=== PATIENT | male | born 1975 | race Caucasian/White ===

== ENCOUNTER 2021-06-22 10:50 | Emergency (ER) | payer MEDICAID, OTHER ==
[~2021-06-22] VITALS: Ht 180.3 cm; Wt 117.9 kg
[2021-06-22 10:56] VITALS: BP 149/83
[2021-06-23] MEDS ORDERED: TEMA30CA PO (17:49)
[2021-06-23] MEDS ORDERED: NALO0.4I4 IJ (17:49)
[2021-06-23] MEDS ORDERED: GABA100C9 PO (17:49)
[2021-06-23] MEDS ORDERED: ALPR0.5T7 PO (17:49)
[2021-06-23] MEDS ORDERED: BENA10TA15 PO (17:49)
[2021-06-23] MEDS ORDERED: METO25TA5 PO (17:49)
[2021-06-23] MEDS ORDERED: PERCOT PO (17:49)
[2021-06-23] MEDS ORDERED: ZIPR80CA37 PO (17:49)
[2021-06-23] MEDS ORDERED: FURO20TA3 PO (17:49)
[2021-06-23] MEDS ORDERED: QUET50TA PO (17:49)
[2021-06-23] MEDS ORDERED: FLUO-126 PO (17:49)
== END 2021-06-22 12:45 | disposition left against medical advice (07) ==
LOC: ER 10:50
DX: R07.9 Chest pain, unspecified (principal); Z53.21 Procedure and treatment not carried out due to patient leaving prior to being seen by health care provider

== ENCOUNTER 2021-06-22 17:43 | Inpatient (IN) | payer MEDICAID ==
[~2021-06-22] VITALS: Ht 185.4 cm; Wt 114.6 kg
[2021-06-22] MEDS ORDERED: ASPirin 325 MG TAB PO ONE (18:30)
[2021-06-22] MEDS ORDERED: NITROGLYCERIN 0.4 MG SL TAB SL ONE (18:30)
[2021-06-22 19:21] LABS: Basophils # (auto) 0 10 ^3/uL (0-0.2); Basophils % (auto) 0.4 % (0.0-2.0); Eosinophils # (auto) 0.2 10 ^3/uL (0-0.8); Eosinophils % (auto) 1.4 % (0.0-7.0); Hematocrit 43.9 % (41.0-53.0); Hemoglobin 14.9 g/dL (13.5-17.5); Lymphocytes # (auto) 2.1 10 ^3/uL (0.4-5.4); Lymphocytes % (auto) 18.1 % (10.0-50.0); Mean Corpuscular Hemoglobin 29.5 pg (28.0-32.0); Mean Corpuscular Volume 86.8 fL (80.0-100.0); Monocytes # (auto) 0.9 10 ^3/uL (0-1.3); Monocytes % (auto) 7.8 % (0.0-12.0); Neutrophils # (auto) 8.3 10 ^3/uL (1.6-8.6); Neutrophils % (auto) 72.3 % (37.0-80.0); Nucleated Red Blood Cells % 0.2 %; Red Blood Cells 5.06 10^6/uL (4.5-5.90); Red Cell Distribution Width 13.8 % (11.8-14.3); White Blood Cell 11.4 10^3/uL (4.4-10.8)
[2021-06-22 19:33] LABS: Albumin 3.9 g/dL (3.4-5.0); BUN/Creatinine Ratio 11.8; Calcium 9.3 mg/dL (8.5-10.1); Potassium 3.9 mmol/L (3.5-5.1)
[2021-06-22 19:36] LABS: Bilirubin, Total 0.4 mg/dL (0.2-1.0); Total Protein 8.1 g/dL (6.4-8.2)
[2021-06-22] MEDS ORDERED: FUROSEMIDE 40 MG/4 ML VIAL IV ONE (21:45)
[2021-06-22] MEDS ORDERED: ONDANSETRON HCL 4 MG/2 ML VIAL IV PRN (23:30)
[2021-06-22] MEDS ORDERED: NITROGLYCERIN 0.4 MG SL TAB SL PRN (23:30)
[2021-06-22] MEDS ORDERED: MORPHINE SULFATE INJECTION 2 MG/ML SYRG IV PRN ×2 (23:30)
[2021-06-23 02:28] LABS: Urine Bacteria NONE SEEN /hpf (None Seen); Urine Blood Negative /uL (Negative); Urine Hyaline Cast FEW /lpf (0 - 2); Urine Mucus FEW (None Seen); Urine Specific Gravity 1.013 (1.001-1.035); Urine WBC 1 /hpf (0 - 3)
[2021-06-23 02:36] LABS: Alcohol, Urine < 3.0 mg/dL (0-10); Amphetamine Screen, Urine NEGATIVE (NEGATIVE); Barbiturate Scree,Urine NEGATIVE (NEGATIVE); Benzodiazephine Screen, Urine NEGATIVE (NEGATIVE); Cannabinoid Screen, Urine NEGATIVE (NEGATIVE); Cocaine Screen, Urine NEGATIVE (NEGATIVE); Opiate Scree,Urine NEGATIVE (NEGATIVE); Phencyclidine Screen, Urine NEGATIVE (NEGATIVE)
[2021-06-23] MEDS ORDERED: FLUoxetine HCL 20 MG CAP PO ONE (06:00)
[2021-06-23 06:53] LABS: Basophils # (auto) 0 10 ^3/uL (0-0.2); Basophils % (auto) 0.6 % (0.0-2.0); Eosinophils # (auto) 0.3 10 ^3/uL (0-0.8); Eosinophils % (auto) 3.9 % (0.0-7.0); Hematocrit 39.2 % (41.0-53.0); Hemoglobin 13.6 g/dL (13.5-17.5); Lymphocytes # (auto) 1.7 10 ^3/uL (0.4-5.4); Lymphocytes % (auto) 20.3 % (10.0-50.0); Mean Corpuscular Hemoglobin 29.9 pg (28.0-32.0); Mean Corpuscular Hgb Conc. 34.8 g/dL (32.0-36.0); Mean Corpuscular Volume 85.9 fL (80.0-100.0); Monocytes # (auto) 1.1 10 ^3/uL (0-1.3); Monocytes % (auto) 12.5 % (0.0-12.0); Neutrophils # (auto) 5.3 10 ^3/uL (1.6-8.6); Neutrophils % (auto) 62.7 % (37.0-80.0); Red Blood Cells 4.57 10^6/uL (4.5-5.90); Red Cell Distribution Width 13.6 % (11.8-14.3); White Blood Cell 8.4 10^3/uL (4.4-10.8)
[2021-06-23 07:08] LABS: Calcium 8.6 mg/dL (8.5-10.1); Potassium 3.5 mmol/L (3.5-5.1)
[2021-06-23 07:12] LABS: BUN/Creatinine Ratio 13.7
[2021-06-23] MEDS: ENOXAPARIN SOD 40 MG/0.4 ML SYRINGE SC SCH (10:20)
[2021-06-23] MEDS: ASPirin-EC 81 mg tab PO SCH (10:20)
[2021-06-23] MEDS: METOPROLOL TARTRATE 25 MG TAB PO SCH ×2 (10:22→22:00)
[2021-06-23] MEDS ORDERED: LORazepam 0.5 MG TAB PO PRN (13:15)
[2021-06-23] MEDS ORDERED: OXYCODONE W/ ACETAMINOPHEN 5/325MG TABLET PO PRN (15:30)
[2021-06-23 16:41] VITALS: BP 91/52
[2021-06-23 17:00] VITALS: BP 91/52
[2021-06-23] MEDS ORDERED: FLUO-126 PO (17:49)
[2021-06-23] MEDS ORDERED: TEMA30CA PO (17:49)
[2021-06-23] MEDS ORDERED: ZIPR80CA37 PO (17:49)
[2021-06-23] MEDS ORDERED: NALO0.4I4 IJ (17:49)
[2021-06-23] MEDS ORDERED: ALPR0.5T7 PO (17:49)
[2021-06-23] MEDS ORDERED: PERCOT PO (17:49)
[2021-06-23] MEDS ORDERED: QUET50TA PO (17:49)
[2021-06-23] MEDS ORDERED: BENA10TA15 PO (17:49)
[2021-06-23] MEDS ORDERED: GABA100C9 PO (17:49)
[2021-06-23] MEDS ORDERED: METO25TA5 PO (17:49)
[2021-06-23] MEDS ORDERED: FURO20TA3 PO (17:49)
[2021-06-23 22:00] VITALS: BP 74/26
[2021-06-23] MEDS ORDERED: ATORVASTATIN 20 MG TAB PO SCH (22:00)
[2021-06-23] MEDS: LORazepam 0.5 MG TAB PO SCH (22:00)
[2021-06-23] MEDS ORDERED: SODIUM CHLORIDE 0.9% 1,000 ML IV ONE (22:15)
[2021-06-23 23:15] VITALS: BP 102/50
[2021-06-24 05:00] VITALS: BP 113/76
[2021-06-24 08:00] VITALS: BP 105/61
[2021-06-24] MEDS: LORazepam 0.5 MG TAB PO SCH (09:33)
[2021-06-24] MEDS: ASPirin-EC 81 mg tab PO SCH (09:34)
[2021-06-24] MEDS: METOPROLOL TARTRATE 25 MG TAB PO SCH (09:34)
[2021-06-24] MEDS: ENOXAPARIN SOD 40 MG/0.4 ML SYRINGE SC SCH (09:34)
[2021-06-24 12:00] VITALS: BP 93/68
[2021-06-24] MEDS ORDERED: QUET50TA PO (14:03)
[2021-06-24] MEDS ORDERED: ZIPR80CA37 PO (14:03)
[2021-06-24] MEDS ORDERED: FLUO-126 PO (14:03)
[2021-06-24] MEDS ORDERED: BENA10TA15 PO (14:03)
[2021-06-24] MEDS ORDERED: METO25TA5 PO (14:03)
[2021-06-24] MEDS ORDERED: FURO20TA3 PO (14:03)
[2021-06-24] MEDS ORDERED: TEMA30CA PO (14:04)
[2021-06-24 14:53] VITALS: BP 93/68
[2021-06-24 16:00] VITALS: BP 116/71
== END 2021-06-24 21:17 | disposition home health service (06) | DRG 203 ==
LOC: EDBD 17:43 → ER 17:43 → TELE 23:36 → TELE-EAST 06-23 15:51
PROVIDERS: ADMIT Hospitalist; ATTEND Hospitalist
DX: R07.9 Chest pain, unspecified (principal); I11.0 Hypertensive heart disease with heart failure; I50.9 Heart failure, unspecified; F31.9 Bipolar disorder, unspecified; F43.12 Post-traumatic stress disorder, chronic; G89.29 Other chronic pain; Z20.822 Contact with and (suspected) exposure to COVID-19; Z82.49 Family history of ischemic heart disease and other diseases of the circulatory system
CPT/HCPCS: 36415; 71045; 80048; 80053; 80061; 80307; 81001; 83735; 83880; 84484; 85025; 87081; 93005; 93306; 93970; 96374; 96375; G0378; J2405

== ENCOUNTER 2021-07-06 17:57 | Emergency (ER) | payer MEDICAID ==
[~2021-07-06] VITALS: Ht 180.3 cm; Wt 113.4 kg
[~2021-07-06 17:57] MED LIST: ALPR0.5T7 PO; BENA10TA15 PO; FLUO-126 PO; FURO20TA3 PO; GABA100C9 PO; METO25TA5 PO; NALO0.4I4 IJ; PERCOT PO; QUET50TA PO; TEMA30CA PO; ZIPR80CA37 PO
[2021-07-07] MEDS ORDERED: LORazepam 0.5 MG TAB PO ONE (08:00)
[2021-07-07 09:00] VITALS: BP 110/74
[2021-07-07 09:01] LABS: Albumin 3.6 g/dL (3.4-5.0); Calcium 8.6 mg/dL (8.5-10.1)
[2021-07-07 09:06] LABS: BUN/Creatinine Ratio 24.1; Bilirubin, Total 0.3 mg/dL (0.2-1.0); Total Protein 7.4 g/dL (6.4-8.2)
[2021-07-07 09:08] LABS: Basophils # (auto) 0 10 ^3/uL (0-0.2); Basophils % (auto) 0.6 % (0.0-2.0); Eosinophils # (auto) 0.2 10 ^3/uL (0-0.8); Eosinophils % (auto) 3.1 % (0.0-7.0); Hematocrit 37.6 % (41.0-53.0); Lymphocytes # (auto) 1.3 10 ^3/uL (0.4-5.4); Lymphocytes % (auto) 22.1 % (10.0-50.0); Mean Corpuscular Hemoglobin 30.2 pg (28.0-32.0); Mean Corpuscular Hgb Conc. 34.7 g/dL (32.0-36.0); Mean Corpuscular Volume 87.1 fL (80.0-100.0); Monocytes # (auto) 0.6 10 ^3/uL (0-1.3); Monocytes % (auto) 10.7 % (0.0-12.0); Neutrophils # (auto) 3.6 10 ^3/uL (1.6-8.6); Neutrophils % (auto) 63.5 % (37.0-80.0); Nucleated Red Blood Cells % 0.1 %; Red Blood Cells 4.32 10^6/uL (4.5-5.90); White Blood Cell 5.7 10^3/uL (4.4-10.8)
== END 2021-07-08 13:58 | disposition home or self-care (01) ==
LOC: ER 18:12
DX: R45.851 Suicidal ideations (principal); F41.9 Anxiety disorder, unspecified; I11.0 Hypertensive heart disease with heart failure; I50.9 Heart failure, unspecified; F32.9 Major depressive disorder, single episode, unspecified
CPT/HCPCS: 36415; 80053; 83880; 84484; 85025

== ENCOUNTER 2021-12-06 22:40 | Emergency (ER) | payer MEDICAID ==
[~2021-12-06] VITALS: Ht 180.3 cm; Wt 112.7 kg
[2021-12-06 23:33] LABS: Basophils # (auto) 0.1 10 ^3/uL (0-0.2); Basophils % (auto) 0.8 % (0.0-2.0); Eosinophils # (auto) 0.2 10 ^3/uL (0-0.8); Eosinophils % (auto) 2.7 % (0.0-7.0); Hemoglobin 14.6 g/dL (13.5-17.5); Lymphocytes % (auto) 30.2 % (10.0-50.0); Mean Corpuscular Hemoglobin 29.1 pg (28.0-32.0); Mean Corpuscular Volume 85.4 fL (80.0-100.0); Monocytes # (auto) 0.5 10 ^3/uL (0-1.3); Monocytes % (auto) 7.9 % (0.0-12.0); Neutrophils # (auto) 3.8 10 ^3/uL (1.6-8.6); Neutrophils % (auto) 58.4 % (37.0-80.0); Nucleated Red Blood Cells % 0.1 %; Red Blood Cells 5.03 10^6/uL (4.5-5.90); Red Cell Distribution Width 13.9 % (11.8-14.3); White Blood Cell 6.5 10^3/uL (4.4-10.8)
[2021-12-06 23:47] LABS: Albumin 3.7 g/dL (3.4-5.0); BUN/Creatinine Ratio 7.3; Calcium 8.4 mg/dL (8.5-10.1); Potassium 3.8 mmol/L (3.5-5.1)
[2021-12-06 23:49] LABS: Bilirubin, Total 0.4 mg/dL (0.2-1.0); Total Protein 6.8 g/dL (6.4-8.2)
[2021-12-07 03:13] VITALS: BP 133/89
== END 2021-12-07 04:15 | disposition home or self-care (01) ==
LOC: ER 22:44
DX: R55 Syncope and collapse (principal); R07.89 Other chest pain; I11.0 Hypertensive heart disease with heart failure; I50.9 Heart failure, unspecified; Z59.00 Homelessness unspecified
CPT/HCPCS: 36415; 71046; 80053; 84484; 85025; 93005